=== PATIENT | female | born 1965 | race Caucasian/White ===

== ENCOUNTER 2017-07-31 21:06 | Emergency (ER) | payer MEDICAID ==
[2017-07-31] MEDS ORDERED: Albuterol/Ipratropium 3.0-0.5 MG/3 ML Neb Soln NEB ONE (21:32)
--- NOTE | 2017-07-31 21:35 | EDM.PDOC ---
ED HPI GENERAL MEDICAL PROBLEM - General Chief Complaint: Respiratory Problem Stated Complaint: FEVER AND COUGH Time Seen by Provider: 07/31/17 21:19 Source of Information: Reports: Patient History Limitations: Reports: No Limitations - History of Present Illness INITIAL COMMENTS - FREE TEXT/NARRATIVE: Presents reporting a 3 to four-week history of fevers, mild shortness of breath , cough and burning substernal pain with the cough. She had a fever for about 6 days but that resolved and since then she has fevers every night but not so much during the day. She is coughing up yellow sputum. She does smoke but has only smoked for one year. Treatments PRODUCTION ASSISTANT: Reports: Acetaminophen chest Pain Score (Numeric/FACES): 5 - Related Data Allergies Allergy/AdvReac Type Severity Reaction Status Date / Time No Known Allergies Allergy Verified 07/31/17 21:12 Home Meds: Home Meds Azithromycin [Zithromax] 250 mg PO DAILY 5 Days #6 tab 07/31/17 [Rx] Past Medical History - Past Surgical History GI Surgical History: Reports: Cholecystectomy Social & Family History - Family History Family Medical History: Noncontributory - Tobacco Use Smoking Status *Q: Current Every Day Smoker Years of Tobacco use: 1 Packs/Tins Daily: 1 - Recreational Drug Use Recreational Drug Use: No ED ROS GENERAL - Review of Systems Review Of Systems: ROS reveals no pertinent complaints other than HPI. ED EXAM, GENERAL - Physical Exam Exam: See Below Exam Limited By: No Limitations General Appearance: Alert, No Apparent Distress Ears: Normal External Exam, Normal TMs Nose: Normal Inspection. No: Nasal Drainage Throat/Mouth: Normal Inspection, Normal Oropharynx, Perioral Cyanosis Head: Atraumatic Neck: Normal Inspection. No: Lymphadenopathy (L), Lymphadenopathy (R) Respiratory/Chest: No Respiratory Distress, Rhonchi, Wheezing (Few low Pitched) Cardiovascular: Normal Peripheral Pulses, Regular Rate, Rhythm, No Murmur Extremities: Normal Inspection Neurological: Alert, Oriented Psychiatric: Normal Affect, Normal Mood Skin Exam: Warm, Dry, Intact, Normal Color, No Rash Lymphatic: No Adenopathy Course - Vital Signs Last Recorded V/S: Last Vital Signs Temp 37.6 C 07/31/17 21:06 Pulse 111 H 07/31/17 21:06 Resp 18 07/31/17 21:06 BP 128/87 07/31/17 21:06 Pulse Ox 94 L 07/31/17 21:06 - Orders/Labs/Meds Orders: Active Orders 24 hr Category Date Time Status RT Aerosol Therapy [RC] ASDIRECTED Care 07/31/17 21:32 Active Chest 2V [CR] Stat Exams 07/31/17 21:30 Taken Labs: Laboratory Tests 07/31/17 Range/Units 21:40 WBC 9.44 (4.0-11.0) K/uL RBC 4.75 (4.30-5.90) M/uL Hgb 14.9 (12.0-16.0) g/dL Hct 42.8 (36.0-46.0) % MCV 90.1 (80.0-98.0) fL MCH 31.4 (27.0-32.0) pg MCHC 34.8 (31.0-37.0) g/dL RDW Std Deviation 44.4 (28.0-62.0) fl RDW Coeff of [place] 14 (11.0-15.0) % Plt Count 312 (150-400) K/uL MPV 8.50 (7.40-12.00) fL Neut % (Auto) 60.3 (48.0-80.0) % Lymph % (Auto) 32.7 (16.0-40.0) % [place] % (Auto) 5.2 (0.0-15.0) % Eos % (Auto) 1.2 (0.0-7.0) % Baso % (Auto) 0.6 (0.0-1.5) % Neut # (Auto) 5.7 (1.4-5.7) K/uL Lymph # (Auto) 3.1 H (0.6-2.4) K/uL [place] # (Auto) 0.5 (0.0-0.8) K/uL Eos # (Auto) 0.1 (0.0-0.7) K/uL Baso # (Auto) 0.1 (0.0-0.1) K/uL Nucleated RBC % 0.0 /100WBC Nucleated RBCs # 0 K/uL Meds: Medications Discontinued Medications Generic Name Dose Route Start Last Admin Trade Name Freq PRN Reason Stop Dose Admin Albuterol/Ipratropium 3 ml 07/31/17 21:32 07/31/17 21:40 Duoneb 3.0-0.5 Mg/3 Ml NEB 07/31/17 21:33 3 ml ONETIME ONE Administration Departure - Departure Time of Disposition: 22:15 Disposition: Home, Self-Care 01 Condition: Good Clinical Impression: Pneumonia Qualifiers: Pneumonia type: due to unspecified organism Laterality: left - Discharge Information Referrals: PCP,None [Primary Care Provider] - [facility] [Outside] [facility] [Outside] Forms: ED Department Discharge Additional Instructions: 1. Antibiotic: Take 2 tabs tomorrow morning and then 1 tab daily for the next 4 days 2. Cough syrup every 4-6 hours 10 mL as needed for cough with driving precautions 3. All up in primary care. Return promptly for shortness of breath, wheezing, fevers not controlled by Tylenol 4. Tylenol 1 g every 8 hours as needed for fevers. - My Orders Last 24 Hours: My Active Orders 07/31/17 21:30 Chest 2V [CR] Stat 07/31/17 21:32 RT Aerosol Therapy [RC] ASDIRECTED - Assessment/Plan Last 24 Hours: My Active Orders 07/31/17 21:30 Chest 2V [CR] Stat 07/31/17 21:32 RT Aerosol Therapy [RC] ASDIRECTED
[2017-07-31] MEDS ORDERED: cefTRIAXone 1,000 MG in Lidocaine 1% 4 ML IM ONE (22:10)
--- NOTE | 2017-08-01 13:28 | CR ---
EXAM DATE: 07/31/17 PATIENT'S AGE: 51 Patient: KATERINA CORMIER Facility: [place], [place] Site . Site : [id number] Study: XRay Chest [id number]/5/[id number] 10:04:43 PM Ordering Physician: Doctor Bernardo Final Report: INDICATION: Cough and fever. TECHNIQUE: Chest radiograph 2 views COMPARISON: None FINDINGS: Cardiovascular and mediastinum: The heart silhouette is normal in size and morphology. The mediastinum is normal in appearance. Lungs and pleural spaces: Both lungs are unremarkable in appearance. No sign of pleural effusion seen. No pneumothorax is identified. Bones and soft tissues: No significant findings. IMPRESSION: 1. No acute cardiopulmonary disease is seen. Dictated by Raulito Noland MD @ 07/31/2017 10:12:26 PM Dictated by: Raulito Noland MD @ 07/31/2017 22:12:30 (Electronic Signature) Report Signed by Proxy. KIM
== END 2017-07-31 22:40 | disposition home or self-care (01) ==
LOC: MW.ED 21:06
DX: J18.9 Pneumonia, unspecified organism (principal); F17.210 Nicotine dependence, cigarettes, uncomplicated
CPT/HCPCS: 36415; 71046; 85025; 94640; 96372; 99284; J0696; J2001; 99283

== ENCOUNTER 2020-08-15 17:00 | Emergency (ER) | payer MEDICAID ==
--- NOTE | 2020-08-15 19:20 | CT ---
INDICATION: Blurry and double vision for 10 days TECHNIQUE: CT Head without i.v. contrast. Coronal and sagittal reformats were obtained. COMPARISON: None FINDINGS: CSF space: The ventricles are normal for age. Brain: No evidence of mass, acute infarction or hemorrhage is seen. No mass-effect or midline shift is seen. The brain parenchyma is otherwise normal in appearance with preservation of the allen-white matter junction. Calvarium: The visualized paranasal sinuses are well aerated. The mastoid air cells are clear. The visualized orbits are grossly unremarkable. The calvarium is unremarkable in appearance with no fractures identified. IMPRESSION: 1. No evidence of acute infarction, intracranial hemorrhage, or mass-effect seen. Please note that all CT scans at this facility use dose modulation, iterative reconstruction, and/or weight-based dosing when appropriate to reduce radiation dose to as low as reasonably achievable. Dictated by: Cleveland Anderson MD @ 08/15/2020 19:18:57 (Electronically Signed)
[2020-08-15 19:49] LABS: BLOOD UREA NITROGEN,BUN 11 mg/dL (7.0-18.0); CARBON DIOXIDE,CO2 29.1 mmol/L (21.0-32.0); CHLORIDE,CL 102 mmol/L (98-107); GLUCOSE RANDOM 155 mg/dL (74-106); POTASSIUM,K 4.1 mmol/L (3.5-5.1); SODIUM,NA 141 mmol/L (136-145)
--- NOTE | 2020-08-15 19:58 | EDM.PDOC ---
<Aditya Michaels - Last Filed: 08/15/20 19:57> ED HPI GENERAL MEDICAL PROBLEM - General Chief Complaint: Eye Problems Stated Complaint: VISION ISSUE Time Seen by Provider: 08/15/20 17:16 - History of Present Illness INITIAL COMMENTS - FREE TEXT/NARRATIVE: CHIEF COMPLAINT(S): Vision changes HISTORY OF PRESENT ILLNESS: This is a 54-year-old woman without any significant past medical history who comes to the emergency department with a chief complaint of vision changes. The patient states that starting approximately 10 days ago when she could see normal she started to slowly lose her vision. She describes it as progressive blurriness of her vision. She states that is progressed to where she can only see outlines of people and no definition. She can no longer read close or far. In addition she states she has a sensation of pressure behind her eyes. She denies any floaters or complete loss of vision. She denies any pain with extraocular movements. She denies any history of thyroid issues. She denies any family history of multiple sclerosis or personal history of multiple sclerosis. She denies any trouble walking, speaking or swallowing. She denies any urine incontinence. She denies any nausea or vomiting, chest pain or shortness of breath. She denies any fevers, chills, neck pain. REVIEW OF SYSTEMS: Constitutional: Denies fever, chills. Eyes: Denies eye pain Ears, Nose, Mouth, & Throat: Positive for pressure sensation behind eyes. Denies earache, sore throat, Cardiovascular: Denies chest pain Respiratory: Denies shortness of breath Gastrointestinal: Denies Nausea, vomiting, diarrhea, hematochezia. Genitourinary: Denies hematuria Skin:Denies a rash MSK: Denies joint pain Neurological: Positive for blurry vision. Denies numbness, tingling, weakness, trouble walking, speaking, swallowing. Psychiatric: Denies depression PAST MEDICAL HISTORY: As per history of present illness and as reviewed below otherwise noncontributory. SURGICAL HISTORY: As per history of present illness and as reviewed below otherwise noncontributory. SOCIAL HISTORY: As per history of present illness and as reviewed below otherwise noncontributory. FAMILY HISTORY: As per history of present illness and as reviewed below otherwise noncontributory. EXAMINATION OF ORGAN SYSTEMS/BODY AREAS: Constitutional: Blood pressure is 122/85, heart rate 81, respiratory rate 15 with an oxygen saturation 97% on room air. Temperature 36.4 General: Overall well-appearing woman who is in no acute distress. Psychiatric: Appropriate mood and affect. Eyes: No scleral icterus or conjunctival erythema pupils were 2 mm and reactive bilaterally. Extraocular movements were intact. Visual acuity was 20/70 in the left eye, 20/100 in the right eye. There was no visual field defects. No h ypopyon or hyphema. No obvious floaters. No proptosis that is obvious. ENMT: Moist mucous membranes. No pharyngeal erythema Cardiovascular: Regular, rate, and rhythm. No gallops, murmurs, or rubs. Bilateral upper extremity pulses symmetric and intact. No peripheral edema. No JVD. Respiratory: Lungs clear to auscultation bilaterally. No wheezes, rales, or rhonchi. Gastrointestinal: Soft, non-tender, non-distended. Normoactive bowel sounds Genitourinary: No suprapubic tenderness Musculoskeletal: Normal range of motion. Skin: No lesions or abrasions. Neurological: AOx4. CN grossly intact. Strength 5/5 in bilateral upper and lower extremity. Sensation is intact bilaterally in upper and lower extremity. Gait appears normal. Finger to nose, heel to carranza, rapid alternating movements i ntact. MEDICAL DECISION MAKING AND COURSE IN THE ED WITH INTERPRETATION/REVIEW OF DIAGNOSTIC STUDIES: This is a 54-year-old woman without any significant past medical history who comes to the emergency department with 10 days of progressive vision loss. There is no color perception changes but there is some sensation of pressure behind the eyes. I believe this is a drastic change in vision over 10 days without any exacerbating factors. At this time I did perform a bedside ocular ultrasound. Bedside ocular ultrasound did not reveal any obvious evidence of retinal detachment or obvious vitreous hemorrhage. There was no evidence of floaters. Optic nerves were measured and both were less than 0.5 indicating no obvious papilledema. At this time I did discuss with patient that I like to speak to neurology for further recommendations. At this time differential does include optic neuritis, optic nerve tumor, just visual changes with age. I did contact [facility] in [place] and spoke with Dr. Doyle who recommended evaluation by ophthalmology and MRI of the brain with and without contrast. I did discuss with Dr. Doyle that we do not have MRI capability here at [facility] in [place]. He states that the patient could be transferred for MRI. Therefore I contacted ophthalmology at [facility] in [place] and spoke with Dr. Howard who recommended MRI and to obtain basic labs, ESR, CRP and a CT head without contrast to evaluate for any obvious abnormality. He states that he would evaluate the patient in the emergency department this evening if she does get transferred to [facility] in [place]. Laboratory: CBC is unremarkable. CRP is less than 0.20. CT head without contrast does not reveal any acute intracranial abnormality. At the time of signout patient was pending further laboratory analysis. The patient should be transferred to [facility] in [place] and Dr. Howard should be notified of any abnormalities of CT head and if patient is going to be transferred. DISPOSITION: Patient was signed out to oncoming night team physician pending further evaluation disposition CONDITION: Serious PROCEDURES: Bedside ocular ultrasound FINAL IMPRESSION(S)/DIAGNOSES: 1. Acute progressive vision loss Aditya Michaels M.D. Head Pain Score (Numeric/FACES): 4 - Related Data Allergies Allergy/AdvReac Type Severity Reaction Status Date / Time No Known Allergies Allergy Verified 08/15/20 17:15 Home Meds: Home Meds . [No Known Home Meds] 08/15/20 [History] Past Medical History - Past Health History Medical/Surgical History: Denies Medical/Surgical History - Infectious Disease History Infectious Disease History: Reports: None - Past Surgical History GI Surgical History: Reports: Cholecystectomy Social & Family History - Family History Family Medical History: No Pertinent Family History - Recreational Drug Use Recreational Drug Use: No ED ROS GENERAL - Review of Systems Review Of Systems: See Below ED EXAM GENERAL W FULL EYE - Physical Exam Exam: See Below Departure - Departure Disposition: DC/Tfer to Acute Hospital 02 Clinical Impression: Blurry vision, bilateral - Discharge Information Instructions: Blurred Vision, Adult Referrals: PCP,None [Primary Care Provider] - Forms: ED Department Discharge Additional Instructions: Please go immediately to the emergency department at [facility] in [place], [place] The following information is given to patients seen in the emergency department who are being discharged to home. This information is to outline your options for follow-up care. We provide all patients seen in our emergency department with a follow-up referral. The need for follow-up, as well as the timing and circumstances, are variable d epending upon the specifics of your emergency department visit. If you don't have a primary care physician on staff, we will provide you with a referral. We always advise you to contact your personal physician following an emergency department visit to inform them of the circumstance of the visit and for follow-up with them and/or the need for any referrals to a consulting specialist. The emergency department will also refer you to a specialist when appropriate. This referral assures that you have the opportunity for follow-up care with a specialist. All of these measure are taken in an effort to provide you with optimal care, which includes your follow-up. Under all circumstances we always encourage you to contact your private physician who remains a resource for coordinating your care. When calling for follow-up care, please make the office aware that this follow-up is from your recent emergency room visit. If for any reason you are refused follow-up, please contact the [facility] Emergency Department at and asked to speak to the emergency department charge nurse. Please follow up with your primary care physician. If you do not have a primary care physician, see below: [facility] [address] [place] [id number] [facility] [address] [place] [id number] [facility] [address] [place] [id number] Sepsis Event Note (ED) - Evaluation Sepsis Screening Result: No Definite Risk <Aki Rea - Last Filed: 08/15/20 20:04> Course - Vital Signs Last Recorded V/S: Last Vital Signs Temp 97.6 F 08/15/20 17:17 Pulse 81 08/15/20 17:17 Resp 15 08/15/20 17:17 BP 122/85 08/15/20 17:17 Pulse Ox 97 08/15/20 17:17 - Orders/Labs/Meds Orders: Active Orders 24 hr Category Date Time Status Cardiac Monitoring [RC] . DIRECTED Care 08/15/20 18:42 Active Pulse Oximetry [RC] ASDIRECTED Care 08/15/20 18:42 Active CORONAVIRUS COVID-19 KATLIN [MOLEC] Stat Lab 08/15/20 19:17 Received Labs: Laboratory Tests 08/15/20 08/15/20 08/15/20 Range/Units 19:00 19:00 19:00 WBC 8.62 (4.0-11.0) K/uL RBC 4.87 (4.30-5.90) M/uL Hgb 15.6 (12.0-16.0) g/dL Hct 45.3 (36.0-46.0) % MCV 93.0 (80.0-98.0) fL MCH 32.0 (27.0-32.0) pg MCHC 34.4 (31.0-37.0) g/dL RDW Std Deviation 45.7 (28.0-62.0) fl RDW Coeff of [place] 13 (11.0-15.0) % Plt Count 229 (150-400) K/uL MPV 9.10 (7.40-12.00) fL Neut % (Auto) 41.2 L (48.0-80.0) % Lymph % (Auto) 51.6 H (16.0-40.0) % [place] % (Auto) 5.3 (0.0-15.0) % Eos % (Auto) 1.4 (0.0-7.0) % Baso % (Auto) 0.5 (0.0-1.5) % Neut # (Auto) 3.6 (1.4-5.7) K/uL Lymph # (Auto) 4.5 H (0.6-2.4) K/uL [place] # (Auto) 0.5 (0.0-0.8) K/uL Eos # (Auto) 0.1 (0.0-0.7) K/uL Baso # (Auto) 0.0 (0.0-0.1) K/uL Nucleated RBC % 0.0 /100WBC Nucleated RBCs # 0 K/uL ESR 5 (0-29) mm/hr Sodium 141 (136-145) mmol/L Potassium 4.1 (3.5-5.1) mmol/L Chloride 102 (98-107) mmol/L Carbon Dioxide 29.1 (21.0-32.0) mmol/L BUN 11 (7.0-18.0) mg/dL Creatinine 0.9 (0.6-1.0) mg/dL Est Cr Clr Drug Dosing 67.67 mL/min Estimated GFR (MDRD) > 60.0 ml/min Glucose 155 H (74-106) mg/dL Calcium 9.0 (8.5-10.1) mg/dL Total Bilirubin 0.4 (0.2-1.0) mg/dL AST 26 (15-37) IU/L ALT 38 (14-63) IU/L Alkaline Phosphatase 94 (46-116) U/L C-Reactive Protein (0.00-0.90) mg/dL Total Protein 7.8 (6.4-8.2) g/dL Albumin 3.7 (3.4-5.0) g/dL Globulin 4.1 H (2.6-4.0) g/dL Albumin/Globulin Ratio 0.9 (0.9-1.6) Free T4 1.05 (0.76-1.46) ng/dL TSH 3rd Generation 1.19 (0.36-3.74) uIU/mL 08/15/20 Range/Units 19:00 WBC (4.0-11.0) K/uL RBC (4.30-5.90) M/uL Hgb (12.0-16.0) g/dL Hct (36.0-46.0) % MCV (80.0-98.0) fL MCH (27.0-32.0) pg MCHC (31.0-37.0) g/dL RDW Std Deviation (28.0-62.0) fl RDW Coeff of [place] (11.0-15.0) % Plt Count (150-400) K/uL MPV (7.40-12.00) fL Neut % (Auto) (48.0-80.0) % Lymph % (Auto) (16.0-40.0) % [place] % (Auto) (0.0-15.0) % Eos % (Auto) (0.0-7.0) % Baso % (Auto) (0.0-1.5) % Neut # (Auto) (1.4-5.7) K/uL Lymph # (Auto) (0.6-2.4) K/uL [place] # (Auto) (0.0-0.8) K/uL Eos # (Auto) (0.0-0.7) K/uL Baso # (Auto) (0.0-0.1) K/uL Nucleated RBC % /100WBC Nucleated RBCs # K/uL ESR (0-29) mm/hr Sodium (136-145) mmol/L Potassium (3.5-5.1) mmol/L Chloride (98-107) mmol/L Carbon Dioxide (21.0-32.0) mmol/L BUN (7.0-18.0) mg/dL Creatinine (0.6-1.0) mg/dL Est Cr Clr Drug Dosing mL/min Estimated GFR (MDRD) ml/min Glucose (74-106) mg/dL Calcium (8.5-10.1) mg/dL Total Bilirubin (0.2-1.0) mg/dL AST (15-37) IU/L ALT (14-63) IU/L Alkaline Phosphatase (46-116) U/L C-Reactive Protein <0.20 (0.00-0.90) mg/dL Total Protein (6.4-8.2) g/dL Albumin (3.4-5.0) g/dL Globulin (2.6-4.0) g/dL Albumin/Globulin Ratio (0.9-1.6) Free T4 (0.76-1.46) ng/dL TSH 3rd Generation (0.36-3.74) uIU/mL - Re-Assessments/Exams Free Text/Narrative Re-Assessment/Exam: 08/15/20 20:[address] Mckeon ER physician at [facility] who agrees to accept patient under his care. Requested [facility] at [place] to please inform Dr. Howard that patient will shortly be on her way and that CT imaging is unremarkable. Patient will go by POV but will not be driving. Departure - Departure Time of Disposition: 20:03 Condition: Good Sepsis Event Note (ED) - Focused Exam Vital Signs: Vital Signs Temp Pulse Resp BP Pulse Ox 08/15/20 17:17 97.6 F 81 15 122/85 97
== END 2020-08-15 20:16 ==
LOC: MW.ED 17:00
DX: H53.8 Other visual disturbances (principal); Z20.822 Contact with and (suspected) exposure to COVID-19
CPT/HCPCS: 36415; 70450; 70450-26; 80053; 84439; 84443; 85025; 85652; 86140; 99284; 99285-25; U0002